=== PATIENT | male | born 1975 | race Caucasian/White ===

== ENCOUNTER 2022-02-02 17:13 | Emergency (ER) | payer BC ==
[2022-02-02 18:00] VITALS: BMI 28.3
[2022-02-02 18:10] VITALS: BP 139/83; PULSE 90; TEMP 98.1
== END 2022-02-02 19:59 | disposition home or self-care (01) ==
LOC: FER 17:13
DX: U07.1 COVID-19 (principal); M79.652 Pain in left thigh
CPT/HCPCS: 93970-TC; 99284-25